=== PATIENT | female | born 1995 | race Caucasian/White ===

== ENCOUNTER 2025-06-23 15:59 | Emergency (ER) | payer OTHER, SELFPAY ==
[2025-06-23 16:08] VITALS: BP 104/69; PULSE 78; RESP 20; TEMP 36.7; O2SAT 98; BMI 38.2
--- NOTE | 2025-06-23 16:28 | ED_ITS ---
Discharge Plan Disposition Patient Disposition: Home, Self-Care Condition: Good Prescriptions Prescriptions: New doxycycline hyclate 100 mg capsule 100 mg PO BID 7 Days Qty: 14 0RF metronidazole 500 mg tablet 500 mg PO BID 7 Days Qty: 14 0RF hydrocortisone 0.5 % cream 1 applic topical DAILY PRN (Reason: rash) Qty: 28.4 0RF Referrals Follow up/Referrals: Provider,Referral, MD [Primary Care Provider, Medical] - See instructions Activity Restrictions/Add. Instructions Additional Instructions/Restrictions: Take the antibiotics as prescribed for 7 days. You can use the cream on your rash, apply twice daily as needed for itching. Follow-up with your primary care provider if you continue to have worsening vaginal cyst's or develop abdominal pain. Clinical Impressions Clinical Impression: STI (sexually transmitted infection), Contact dermatitis Print Language Print Language: [place] Citizen Discharge ED Provider: Susi Wadsworth Adult HPI General Chief complaint: Recheck/Abnormal Lab/Rx Stated complaint: sore throat,frequency,painful urination Time Seen by Provider: 06/23/25 16:09 Mode of Arrival: Ambulatory Source of Information: Patient Description of Symptoms (Recalled from ER Triage Doc. by RN): pt is here from out of town while visiting family, pt wants to be tested for stds, b/v, uti, due to burning upon urination, pt also has sore throat headache and a generalized rash on her body History of Present Illness HPI narrative: Patient is an otherwise healthy 29-year-old female who presented to the emergency department with multiple complaints. Patient states that she is here visiting from [place], patient started having some skin irritation and itching. Patient also reports vaginal discharge urinary symptoms. Patient states that she has had unprotected sex, patient is worried for sexually transmitted infections. Patient does not have any abdominal pain. Patient is not had any vaginal bleeding. Patient states that she has not had any other new recent exposures, rashes intermittently throughout her body, itchy in nature. Patient has not had any fevers. Patient is not allergic to anything. Patient has not had any new foods. Patient denies any new lotions or clothing. Also reported this was throat, no trouble swallowing, no fevers. Related Data Previous Rx's ?Medication ?Instructions ?Recorded doxycycline hyclate 100 mg capsule 100 mg PO BID 7 day s #14 caps 06/23/25 hydrocortisone 0.5 % topical cream 1 applic topical DA DARREN PRN rash 06/23/25 #28.4 grams metronidazole 500 mg tablet 500 mg PO BID 7 days #14 t abs 06/23/25 Allergies Allergy/AdvReac Type Severity Reaction Status Date / Time azithromycin (From Zithromax) AdvReac Mild Hives Verified 06/23/25 16:59 [facility] Disclaimer: The information contained in this section may have been updated after the p atient was seen, as this information can be updated by other users. Social History Smoking Status: Current every day smoker Have you lived/traveled outside US in past 30 days?: No Contact w/someone who lives/traveled outside US past 30 days?: No Exposure to someone with infectious disease in past 14 days?: No Do you have a fever (greater than 100.4 F or 38 C)?: No Have you tested positive for COVID-19?: No Exposed to someone with COVID-19 in past 14 days?: No Do you have a sore throat?: No Do you have a cough?: No Do you have any weakness?: No Do you have any diarrhea?: No Are you experiencing any unusual bleeding?: No Do you have any muscle aches/pain?: No Do you have any abdominal pain?: No Are you experiencing loss of taste or smell?: No ROS Obtained: Yes All systems reviewed & no additional complaints except as documented and Yes Systems reviewed as appropriate & no additional complaints except as documented Physical Exam General General appearance: alert and in no apparent distress Head Head exam: atraumatic, normocephalic and normal inspection Eye Eye exam: Present normal appearance, PERRL and EOMI; Absent scleral icterus ENT ENT exam: Present normal exam, normal external ear exam and other (Oropharynx is unremarkable, no erythema, no tonsillar hypertrophy no exudate) Neck Neck exam: Present normal inspection and full ROM Chest Chest inspection: Present normal inspection and symmetric chest wall rise Respiratory Respiratory exam: Present normal lung sounds bilaterally; Absent respiratory distress or wheezes Cardiovascular Cardiovascular exam: Present regular rate, normal rhythm and normal heart sounds Abdominal Exam Abdominal exam: Present soft and distention; Absent tenderness, guarding or re bound External exam: Present other (external exam unremarkable, speculum exam showed white thick discharge) Extremities Exam Extremities exam: Present normal inspection and full ROM Back Exam Back exam: Present normal inspection and full ROM Neurological Exam Neurological exam: Present alert and oriented X3 Psychiatric Psychiatric exam: Present normal affect and normal mood Skin Skin exam: Present warm, dry and other (small areas of excoriation on the right flexor crease of the elbow, and back, no erythema, no induration, no wheals) Medical Decision Making Medical Records Medical records reviewed: Yes I reviewed the patient's medical records. Screening: Per USPSTF and CDC recommendations, given the prevalence of disease in our region, it is our hospital?s policy to screen for HIV and viral Hepatitis for all patients aged 18 and over and those with ongoing risk factors. Ha Inquiry Pt receiving controlled substance: No Vital Signs: 06/23/25 16:08 06/23/25 18:39 Temperature 98.1 F 98.2 F Temperature Source Oral Pulse Rate 73 Pulse Rate [Left Radial] 78 Respiratory Rate 20 18 Blood Pressure 134/79 Blood Pressure [Right Arm] 104/69 L Blood Pressure Mean [Right Arm] 80 02 Sat by Pulse Oximetry 98 Oxygen Delivery Method Room Air Room Air Lab Data Lab results reviewed: Yes I reviewed the patient's lab results. Lab Results 06/23/25 16:11: Urine Color Yellow, Urine Appearance Clear, Urine pH 7.0, Ur Specific [place] 1.020, Urine Protein Negative, Urine Glucose (UA) Negative, Urine Ketones Negative, Urine Blood Negative, Urine Nitrate Negative, Urine Bilirubin Negative, Urine Urobilinogen 0.2, Ur Leukocyte Esterase Negative, Urine RBC None, Urine WBC 3-5, Ur Squamous Epith Cells 5-10, Urine Bacteria Trace, Urine HCG, Qual Negative, Ur C. trach DNA (PCR) Negative, U N.gonorrhoeae DNA PCR Negative, T. vaginalis (PCR) Negative 06/23/25 16:38: SARS-CoV-2 (PCR) Not detected, Influenza Type A (PCR) Not detected, Influenza Type B (PCR) Not detected, RSV (PCR) Not detected, Rhinovirus (PCR) Not detected Orders (Tests/Meds): ED MEDICATIONS Discontinued Medications Generic Name Dose Route Start Last Admin Trade Name Freq PRN Reason Stop Dose Admin Acetaminophen 1,000 mg 06/23/25 16:20 06/23/25 16:59 Acetaminophen 500mg Tab PO 06/23/25 16:21 1,000 mg ONCE ONE Administration Ceftriaxone Sodium 500 mg 06/23/25 18:00 06/23/25 18:15 Ceftriaxone 500mg Vial IM 06/23/25 18:01 500 mg ONCE ONE Administration Fluconazole 100 mg 06/23/25 18:00 06/23/25 18:14 Fluconazole 100mg Tablet PO 06/23/25 18:01 100 mg ONCE ONE Administration Ibuprofen 800 mg 06/23/25 16:21 06/23/25 17:00 Ibuprofen 800 Mg Tablet PO 06/23/25 16:22 800 mg ONCE ONE Administration Lidocaine HCl 0 ml 06/23/25 18:00 06/23/25 18:14 Lidocaine 1% 5ml Pf Vial IM 06/23/25 18:01 5 ml ONCE ONE Administration Ondansetron HCl 4 mg 06/23/25 16:20 06/23/25 16:59 Ondansetron 4mg Odt SL 06/23/25 16:21 4 mg ONCE ONE Administration ORDERS Category Date Time Status Bacterial vaginosis/Aisha Stat Lab 06/23/25 18:00 Received Mini Respiratory Panel Stat Lab 06/23/25 16:38 Completed UA [Urinalysis and Microscopic] Stat Lab 06/23/25 16:11 Completed Urine Chlam/Gono/Trich ([facility]) Stat Lab 06/23/25 16:11 Completed Urine , HCG Qual. Stat Lab 06/23/25 16:11 Completed Urine Culture Stat Micro 06/23/25 16:11 Completed Medical Decision Narrative: Patient is an otherwise healthy 29-year-old female who presents to the emergency department with multiple complaints. Patient reported a sore throat, rash as well as urinary and vaginal symptoms.On arrival, patient was hemodynamically stable with unremarkable vital signs. Differential included but not limited to: Sexually transmitted infection, Aisha infection, bacterial vaginosis, contact dermatitis, viral pharyngitis, urinary tract infection, , amongst others. Patient's labs were reviewed and interpreted by myself: Patient's UA has trace bacteria, 3-5 white blood cells and negative nitrites and leuk esterase. Patient's respiratory panel is negative. test negative. Patient was given Magic mouthwash for his sore throat. Patient's likely viral pharyngitis no concern for strep pharyngitis at this time. Given that patient is from out of town and after discussion with the patient, she elected to be treated empirically for sexually transmitted infections however gonorrhea chlamydia and bacterial vaginosis was sent as well as trichomonas. Patient did have white discharge therefore patient was treated for yeast infection as well. Patient was given a dose of IM Rocephin as well as fluconazole in the emergency department. Patient was sent with Flagyl as well as doxycycline. At this time, patient was also sent with hydrocortisone cream for rash. It appears to be likely to be a contact dermatitis, no concern for superficial cellulitis or other skin infection at this time. Patient was otherwise discharged home in stable condition return precautions were discussed. Critical Care Critical Care Time Critical Care Time: No
[2025-06-23 16:32] LABS: Microscopic, Urine URINE MICROSCOPIC (MICROSCOPIC)
[2025-06-23 16:39] LABS: Urine Pregnancy, HCG Qual. Negative (Negative)
[2025-06-23 16:56] LABS: Coronavirus 19, PCR Not Detected (NotDetected); Influenza A, PCR Not Detected (NotDetected); Influenza B, PCR Not Detected (NotDetected)
[2025-06-23] MEDS: ONDANSETRON 4MG ODT 4 MG SL (16:59)
[2025-06-23] MEDS: ACETAMINOPHEN 500MG TAB 1000 MG PO (16:59)
[2025-06-23] MEDS: IBUPROFEN 800 MG TABLET PO (17:00)
[2025-06-23 17:22] LABS: Bacteria,Urine Trace /lpf
[2025-06-23 17:26] LABS: Bilirubin,Urine Negative (Negative); Color,Urine YELLOW (Yellow); Glucose,Urine (UA) Negative (Negative); Ketones,Urine Negative (Negative); Leukocyte Esterase,Urine Negative (Negative); PH,Urine 7.0 (5.0-8.5); Protein,Urine Negative (Negative); Specific Gravity, Urine 1.020 (1.005-1.030); Urobilinogen,Urine 0.2 EU/dl (0.2)
[2025-06-23] MEDS: LIDOCAINE 1% 5ML PF VIAL IM (18:14)
[2025-06-23] MEDS: FLUCONAZOLE 100MG TABLET 100 MG PO (18:14)
[2025-06-23 18:39] VITALS: BP 134/79; PULSE 73; RESP 18; TEMP 36.8; O2SAT 98
[2025-06-29 15:41] LABS: Bacterial Vaginosis Associated 2
== END 2025-06-23 18:40 | disposition home or self-care (01) ==
PROVIDERS: Emergency Provider Student in an Organized Health Care Education/Training Program
DX: R30.0 Dysuria (principal); A64 Unspecified sexually transmitted disease; L25.9 Unspecified contact dermatitis, unspecified cause; R07.0 Pain in throat; F17.210 Nicotine dependence, cigarettes, uncomplicated
CPT/HCPCS: 81001; 81025; 87086; 87491; 87591; 87631; 87661; 87798; 87801; 96372; 99283; J0696; J2003; Q0162

== ENCOUNTER 2025-07-12 07:31 | Emergency (ER) | payer OTHER, SELFPAY ==
[2025-07-12 07:48] VITALS: BP 141/80; PULSE 69; RESP 15; TEMP 36.6; O2SAT 99; BMI 38.6
--- NOTE | 2025-07-12 08:34 | ED_ITS ---
Discharge Plan Disposition Patient Disposition: Home, Self-Care Prescriptions Prescriptions: New hydrocortisone 0.5 % cream 1 applic topical BID PRN (Reason: rash) Qty: 28.4 0RF Discontinued hydrocortisone 0.5 % cream 1 applic topical DAILY PRN (Reason: rash) Qty: 28.4 0RF No Action doxycycline hyclate 100 mg capsule 100 mg PO BID 7 Days Qty: 14 0RF metronidazole 500 mg tablet 500 mg PO BID 7 Days Qty: 14 0RF Referrals Follow up/Referrals: Provider,Referral, MD [Primary Care Provider, Medical] - See instructions Activity Restrictions/Add. Instructions Additional Instructions/Restrictions: We will call you to follow-up the results of your stool studies. Continue to hydrate well by drinking plenty of fluids, including water, sugar-free Gatorade, Pedialyte. For your rash, use the hydrocortisone cream as prescribed. I also encourage you to wash your sheets and clothing in hot water with detergent as this could be an allergic reaction to the new sheets. If you develop any new or worsening symptoms, or if you become concerned for your health for any reason, return to the emergency department for evaluation. You can also use [id number] hemorrhoid cream for your hemorrhoids. Clinical Impressions Clinical Impression: Diarrhea, External hemorrhoid, Contact dermatitis Instructions Patient Instructions: DI for Gastrointestinal Bleeding Print Language Print Language: [place] Citizen Discharge ED Provider: Du Gonzalez General Adult HPI General Chief complaint: GI Bleed Stated complaint: Rash on Body, diarrhea, blood in stool Time Seen by Provider: 07/12/25 07:54 Mode of Arrival: Ambulatory Source of Information: Patient Description of Symptoms (Recalled from ER Triage Doc. by RN): pt presents to ED with c/o blood in stool, rash, diarrhea. pt reports that she [place]. pt reports stomach, breasts, thighs. symptoms all began approx 3 days ago. pt reports bright red blood per rectum. History of Present Illness HPI narrative: Adelia Trejo is a 29y with a history of tubal ligation, hemorrhoids who presents to the emergency department complaints of rash and bloody diarrhea. Patient states that 2 weeks ago, she had symptoms of a viral upper respiratory infection with congestion, cough. She noticed a rash on her forearm and was evaluated emergency department at that time and told was a contact dermatitis and was prescribed hydrocortisone cream. She states that it did not get much better and seems to spread to her chest, abdomen, thighs and her left arm. She does state that it is itchy. She is concerned she may have scabies but states that it does not involve the webspaces of her fingers and her daughter, who sleeps in the same bed as her, does not have these lesions. She states that they recently moved here and bought all new sheets and a new mattress, however she has not washed them. She has not used any new detergents or soaps. In terms of the diarrhea, she states that she started to have multiple episodes of loose diarrhea that started out as nonbloody approximately week ago but is going approximately every 30 minutes and states that is now bright red blood. She does report some mild lower abdominal pain. She does report a history of hemorrhoids and states that it feels similar to that. Related Data Previous Rx's ?Medication ?Instructions ?Recorded doxycycline hyclate 100 mg capsule 100 mg PO BID 7 day s #14 caps 06/23/25 metronidazole 500 mg tablet 500 mg PO BID 7 days #14 t abs 06/23/25 hydrocortisone 0.5 % topical cream 1 applic topical BI D PRN rash 07/12/25 #28.4 grams Allergies Allergy/AdvReac Type Severity Reaction Status Date / Time azithromycin (From Zithromax) AdvReac Mild Hives Verified 06/23/25 16:59 [facility] Disclaimer: The information contained in this section may have been updated after the patient was seen, as this information can be updated by other users. Social History Smoking Status: Current every day smoker alcohol intake: never current occupational status: unemployed Travel in the last 8 weeks?: Inside the [employer] ROS Obtained: Yes Systems reviewed as appropriate & no additional complaints except as documented Physical Exam General General appearance: alert and in no apparent distress Head Head exam: atraumatic Eye Eye exam: Present normal appearance ENT ENT exam: Present normal external ear exam Neck Neck exam: Present full ROM Chest Chest inspection: Present symmetric chest wall rise Respiratory Respiratory exam: Present normal lung sounds bilaterally; Absent respiratory distress Cardiovascular Cardiovascular exam: Present regular rate and normal rhythm Abdominal Exam Abdominal exam: Present soft and tenderness (Mild suprapubic tenderness); Absent guarding Extremities Exam Extremities exam: Present normal inspection Back Exam Back exam: Present normal inspection Neurological Exam Neurological exam: Present alert and oriented X3 Psychiatric Psychiatric exam: Present normal affect Skin Skin exam: Present warm, dry and rash (Scattered, macules with excoriation hill to bilateral forearms, upper arms, chest, abdomen) Medical Decision Making Medical Records Screening: Per USPSTF and CDC recommendations, given the prevalence of disease in our region, it is our hospital?s policy to screen for HIV and viral Hepatitis for all patients aged 18 and over and those with ongoing risk factors. Ha Inquiry Pt receiving controlled substance: No Vital Signs: 07/12/25 07:48 07/12/25 08:38 07/12/25 10:34 Temperature 97.8 F Temperature Source Oral Pulse Rate 66 Pulse Rate [Left Radial] 69 Respiratory Rate 15 Blood Pressure 117/72 Blood Pressure [Right Arm] 141/80 H Blood Pressure Mean [Right Arm] 100 Blood Pressure Source [Right Arm] Automatic Cuff Blood Pressure Position [Right Arm] Supine 02 Sat by Pulse Oximetry 99 98 99 Oxygen Delivery Method Room Air Lab Data Lab Results 07/12/25 08:16: WBC 7.5, RBC 4.27, Hgb 13.6, Hct 39.1, MCV 91.6, MCH 31.9 H, MCHC 34.8, RDW 12.5, Plt Count 302, MPV 9.6, Neut % (Auto) 51.0, Lymph % (Auto) 38.3, [place] % (Auto) 6.1, Eos % (Auto) 3.7, Baso % (Auto) 0.5, Neut # (Auto) 3.8, Lymph # (Auto) 2.9, [place] # (Auto) 0.5, Eos # (Auto) 0.3, Baso # (Auto) 0.0, Sodium 140, Potassium 3.5, Chloride 109 H, Carbon Dioxide 21 L, Anion Gap 13.5, BUN 9, Creatinine 0.60, Estimated Creat Clear 223, Estimated GFR 118, Est GFR ( Amer) 143, Glucose 132 H, Calcium 9.0, Total Bilirubin 0.5, AST 38 H, ALT 33, Alkaline Phosphatase 58, Total Protein 6.9, Albumin 4.1, Globulin 2.8, Albumin/Globulin Ratio 1.5, Lipase 56, Serum HCG, Qual Negative, HCV Ab CAITLYN w/Rflx PCR Qn Negative 07/12/25 08:25: Blood Type O Positive, Antibody Screen Negative 07/12/25 08:47: Urine Color Yellow, Urine Appearance Clear, Urine pH 6.0, Ur Specific [place] >= 1.030, Urine Protein Negative, Urine Glucose (UA) Negative, Urine Ketones Negative, Urine Blood 1+ A, Urine Nitrate Negative, Urine Bilirubin Negative, Urine Urobilinogen 0.2, Ur Leukocyte Esterase Negative, Urine RBC None, Urine WBC 3-5, Ur Squamous Epith Cells 10-20, Urine Bacteria 1+ 07/12/25 08:16 07/12/25 08:16 Orders (Tests/Meds): ED MEDICATIONS Discontinued Medications Generic Name Dose Route Start Last Admin Trade Name Freq PRN Reason Stop Dose Admin Diphenhydramine HCl 25 mg 07/12/25 08:34 07/12/25 09:38 Diphenhydramine 50mg/Ml Vial IV 07/12/25 08:35 25 mg ONCE ONE Administration ORDERS Category Date Time Status Type and Screen Stat BBK 07/12/25 08:25 Completed CBC w/Auto Diff [Complete Blood Count Auto Diff] Stat Lab 07/12/25 08:16 Completed CMP [Comprehensive Metabolic Panel] Stat Lab 07/12/25 08:16 Completed Diarrhea 23 Panel, PCR Stat Lab 07/12/25 08:47 Received HIV Combo Stat Lab 07/12/25 08:16 Received Hepatitis C Ab Qual. W/ RFX Stat Lab 07/12/25 08:16 Completed Lipase Stat Lab 07/12/25 08:16 Completed Serum [HCG Qualitative, Serum] Stat Lab 07/12/25 08:16 Completed UA [Urinalysis and Microscopic] Stat Lab 07/12/25 08:47 Completed Medical Decision Narrative: Adelia Trejo is a 29y with a history of tubal ligation, hemorrhoids who presents to the emergency department complaints of rash and bloody diarrhea. Patient states that 2 weeks ago, she had symptoms of a viral upper respiratory infection with congestion, cough. She noticed a rash on her forearm and was evaluated emergency department at that time and told was a contact dermatitis and was prescribed hydrocortisone cream. She states that it did not get much better and seems to spread to her chest, abdomen, thighs and her left arm. She does state that it is itchy. She is concerned she may have scabies but states that it does not involve the webspaces of her fingers and her daughter, who sleeps in the same bed as her, does not have these lesions. She states that they recently moved here and bought all new sheets and a new mattress, however she has not washed them. She has not used any new detergents or soaps. In terms of the diarrhea, she states that she started to have multiple episodes of loose diarrhea that started out as nonbloody approximately week ago but is going approximately every 30 minutes and states that is now bright red blood. She does report some mild lower abdominal pain. She does report a history of hemorrhoids and states that it feels similar to that. On arrival, patient is mildly hypertensive, heart within normal limits, breathing comfortably on room air, afebrile, oxygen saturation 98% on room air. Cardiopulmonary exam is unremarkable. She is mildly tender in the suprapubic region without guarding or rebound. Abdomen is not peritonitic. Rectal exam performed with equal employment opportunity officer shows 2 separate external hemorrhoids, 1 at the 12 o'clock position and one at the 9 o'clock position with bright red red near the hemorrhoid at the 9 o'clock position. Hemoccult was considered, however given there is obvious blood in this area, is felt that this is not needed. Patient does have scattered scabbed over papules along the bilateral forearms, upper arms, chest and abdomen, sparing the skin folds and webspaces of the fingers. Scabies was considered, however mother states that her daughter and son sleep in the same house and in the same bed as her, however they have not had similar type rash. She does note that they recently moved here and she brought all new sheets and a new mattress but has not washed them since she bought them. She states that she has not switched detergents or soaps. It is felt that her symptoms are likely related to contact dermatitis and I recommended washing her sheets in hot water and detergent that she has used before. Will also give hydrocortisone cream to help with symptoms. Recommended Benadryl for itching relief. Differential diagnosis for diarrhea and abdominal pain includes: Infectious colitis, urinary tract infection, lower GI bleed, external hemorrhoids, low concern for ovarian pathology such as torsion or ruptured ovarian cyst given patient is only tender over the suprapubic region and mildly tender at that. It is felt that bleeding is emanating from her hemorrhoid, which was likely irritated due to diarrhea. Workup in the emergency department included: CBC with differential, CMP, lipase, test, urinalysis, diarrhea panel. CT abdomen pelvis was considered, however given the localization of her pain in the suprapubic region and bleeding likely from her external hemorrhoid, is felt that the risk of radiation exposure outweighs the potential benefits and was deferred at this time. Patient's workup shows no leukocytosis, no anemia with hemoglobin 13.6, hematocrit 39.1, platelets normal at 302. Electrolytes within normal limits. BUN normal at 9. Creatinine 0.6. Mildly elevated AST at 38 but liver enzymes and bilirubin otherwise within normal limits. Lipase normal at 56. Negative test. Urinalysis with no RBCs on micro, 10-20 squamous epithelial cells and only 3-5 white blood cells. Negative leukocyte Estrace and negative nitrate (low concern for urinary tract infection). Patient has been in the emergency department daily for hours without worsening of her symptoms. Given this, feel the patient is appropriate discharge at this time and will follow-up with her the results of her GI panel if there is any actual needs to be taken on that. I encouraged her to continue hydrating by drinking plenty of fluids, including water, sugar-free Gatorade, Pedialyte and was given strict return precautions. Is felt that patient's bloody diarrhea could be secondary to gastrointestinal illness resulting in diarrhea that irritated her external hemorrhoid versus bleeding from infectious diarrhea. By the way, is felt the patient is appropriate discharge at this time given she is not anemic and her BUN is normal. Critical Care Critical Care Time Critical Care Time: No
[2025-07-12 08:38] VITALS: O2SAT 98
[2025-07-12 08:41] LABS: Hematocrit 39.1 % (37.0-47.0); Hemoglobin 13.6 g/dL (12.2-16.2); Immature Granulocytes % 0.4 %; Mean Corpuscular HGB Conc 34.8 g/dL (31.8-35.4); Mean Corpuscular Hemoglobin 31.9 pg (27.0-31.2); Mean Corpuscular Volume 91.6 fl (81-99); Nucleated Red Blood Cells % 0 %; Platelet Count 302 K/mm3 (142-424); Red Blood Count 4.27 M/mm3 (4.20-5.40); Red Cell Distribution Width-SD 41.5 fL; White Blood Count 7.5 K/mm3 (4.8-10.8)
[2025-07-12 08:42] LABS: Albumin Level 4.1 g/dl (3.5-5.0); Chloride 109 mmol/L (98-107); Potassium 3.5 mmoL/L (3.5-5.1); Sodium 140 mmol/L (136-145)
[2025-07-12 08:45] LABS: Alanine Aminotransferase 33 U/L (12-78); Albumin/Globulin Ratio 1.5 (1.1-1.8); Alkaline Phosphatase 58 U/L (38-126); Anion Gap 13.5 mEq/L (5-15); Aspartate Amino Transferase 38 U/L (14-36); Bilirubin,Total 0.5 mg/dl (0.2-1.3); Blood Urea Nitrogen 9 mg/dl (7-17); Carbon Dioxide 21 mmol/L (22.0-30.0); Creatinine Clearance Estimated 223 mL/min (50-200); Creatinine,Serum 0.60 mg/dl (0.52-1.04); Estimated Glomerular Filt Rate 118 ml/min (>60); GFR (African American) 143 ML/MIN (>60); Globulin 2.8 g/dL (1.3-3.2); Lipase 56 U/L (23-300); Total Protein,Serum 6.9 g/dl (6.3-8.2)
[2025-07-12 08:46] LABS: Calcium 9.0 mg/dl (8.4-10.2); Glucose 132 mg/dl (74-100)
[2025-07-12 08:50] LABS: HCG Qualitative, Serum Negative (Negative)
[2025-07-12 08:53] LABS: Adenovirus F 40/41, stool Not Detected (NotDetected); Clostridium Difficile A/B, PCR Not Detected (NotDetected); Cyclospora Cayetanesis Not Detected (NotDetected); Microscopic, Urine URINE MICROSCOPIC (MICROSCOPIC); Plesimonas Shigalloides, PCR Not Detected (NotDetected); Salmonella, PCR Not Detected (NotDetected); Shiga-like toxin E coli Not Detected (NotDetected); Shigella Enterovasive E coli Not Detected (NotDetected); Vibrio, PCR Not Detected (NotDetected); Yersinia Entercolitica, PCR Not Detected (NotDetected)
[2025-07-12 09:06] LABS: Bilirubin,Urine Negative (Negative); Color,Urine YELLOW (Yellow); Glucose,Urine (UA) Negative (Negative); Ketones,Urine Negative (Negative); Leukocyte Esterase,Urine Negative (Negative); PH,Urine 6.0 (5.0-8.5); Protein,Urine Negative (Negative); Specific Gravity, Urine >= 1.030 (1.005-1.030); Urobilinogen,Urine 0.2 EU/dl (0.2)
[2025-07-12 09:26] LABS: Bacteria,Urine 1+ /lpf
[2025-07-12 09:56] LABS: Hepatitis C Ab Qual. W/ RFX NEGATIVE (Negative)
[2025-07-12 10:34] VITALS: BP 117/72; PULSE 66; O2SAT 99
[2025-07-12 11:16] VITALS: BP 95/60; PULSE 83; RESP 16; TEMP 36.6; O2SAT 97
[2025-07-12 19:28] LABS: HIV Combo Retest POSITIVE (Negative)
== END 2025-07-12 11:17 | disposition home or self-care (01) ==
PROVIDERS: Emergency Provider Student in an Organized Health Care Education/Training Program
DX: A08.11 Acute gastroenteropathy due to Norwalk agent (principal); R10.30 Lower abdominal pain, unspecified; L25.9 Unspecified contact dermatitis, unspecified cause; R19.7 Diarrhea, unspecified; K64.9 Unspecified hemorrhoids
CPT/HCPCS: 80053; 81001; 83690; 84703; 85025; 86803; 86850; 87389; 87507; 96374; 99284; G0432; J1200

== ENCOUNTER 2025-08-06 05:12 | Emergency (ER) | payer SELFPAY ==
[2025-08-06 05:21] VITALS: BP 124/76; PULSE 72; RESP 16; TEMP 36.6; O2SAT 97; BMI 38.9
[2025-08-06 05:23] VITALS: BP 124/76; PULSE 79; O2SAT 98
[2025-08-06 05:30] VITALS: BP 120/67; PULSE 71; O2SAT 96
--- NOTE | 2025-08-06 05:48 | ED_ITS ---
Discharge Plan Disposition Patient Disposition: Home, Self-Care Condition: Good Prescriptions Prescriptions: New prednisone 10 mg tablet 10 mg PO DIRECTED Qty: 60 0RF Rx Instructions: Take 5 pills (5omg) by mouth once daily for 4 days; then take 4 pills (40mg) by mouth for 4 days; then take 3 pills (30mg) by mouth for 4 days; then take 2 pills (20mg) by mouth for 4 days; then take 1 pill (10mg) by mouth for 4 days. No Action doxycycline hyclate 100 mg capsule 100 mg PO BID 7 Days Qty: 14 0RF metronidazole 500 mg tablet 500 mg PO BID 7 Days Qty: 14 0RF hydrocortisone 0.5 % cream 1 applic topical BID PRN (Reason: rash) Qty: 28.4 0RF Referrals Follow up/Referrals: Jennifer Marin MD [Referring, Dermatology] - See instructions Referral Note: Please evaluate CHRISTINA for pruritic rash x2 months, worsening Davion Lin, [Staff Physician, Family Practice] - See instructions Referral Note: establish care, follow up rash, speech pathology supervisor referral, possible illness from environmental mold Provider,Referral, [Primary Care Provider, Medical] - See instructions Activity Restrictions/Add. Instructions Additional Instructions/Restrictions: You were evaluated in the ER and are believed to be appropriate for discharge at this time. Take the prescribed prednisone taper as directed. I recommend you take this medication when you wake up to start your day as it will likely boost your energy. As discussed, you can use the [employer] website to help with prescriptions. Call to make an appointment with Dr. Lin's office to establish care with family medicine. They should follow-up any chronic problems including this rash and can help with a referral to an speech pathology supervisor. Also call Dr. Marin's office to make an appointment with dermatology. Call them first thing Thursday morning as it often takes a little while to get into her. Consider having your environment evaluated for mold as discussed. Do not use any more topical cortisone or hydrocortisone cream. I recommend aquaphor or eucerin cream to help calm the skin. Keep taking zyrtec daily to reduce allergic symptoms. Return to the ER with any new, worsening, or otherwise concerning symptoms. Clinical Impressions Clinical Impression: Dermatitis, Pruritic rash Print Language Print Language: Belarusian Discharge ED Provider: Jensen,Mikalah General Adult HPI General Chief complaint: Skin/Abscess/Foreign Body Stated complaint: skin rash, body aches, weakness Time Seen by Provider: 08/06/25 05:21 Mode of Arrival: Ambulatory Source of Information: Patient Description of Symptoms (Recalled from ER Triage Doc. by RN): Patient has had a rash for 6/7 weeks; has not gotten any better; has not seen pcp for it History of Present Illness HPI narrative: 29-year-old female presents to the ER with nearly 2 months of rash. She has been evaluated now 3 times in this ER including today for the same complaint. She states she has used prescription cortisone cream, topical hydrocortisone cream, oral antihistamines including Zyrtec and Benadryl, but the rash seems to continue to get worse. She states it started on her arms but has expanded to include her whole body. She has had her home evaluated by an air deodorizer servicer and they did not find any evidence of bedbugs, scabies, or other pests, and her daughter who lives with her has no similar rash. Patient and daughter recently moved to their new home here in [place] and approximately 1 to 2 weeks after moving and she started having the rash on her arms. She reports it is now spread to her entire body except her face and she reports the itching is keeping me up at night and I scratch myself until I bleed . She does report occasional marijuana use but denies IV drug use or other illicit drugs, specifically denying methamphetamines and cocaine. She reports no history of seasonal allergies. She states as her rash has progressed she has also noticed that she has been somewhat more fatigued and is starting to have headaches. She is not having any numbness, tingling, weakness, no thunderclap onset, she denies any difficulty breathing or swallowing, no new cough, no nausea, vomiting, diarrhea, or abdominal pain. She has no other complaints or concerns at this time. She is frustrated that she is getting worse not better. Related Data Previous Rx's ?Medication ?Instructions ?Recorded doxycycline hyclate 100 mg capsule 100 mg PO BID 7 day s #14 caps 06/23/25 metronidazole 500 mg tablet 500 mg PO BID 7 days #14 t abs 06/23/25 hydrocortisone 0.5 % topical cream 1 applic topical BI D PRN rash 07/12/25 #28.4 grams prednisone 10 mg tablet 10 mg PO DIRECTED #60 tab s 08/06/25 Allergies Allergy/AdvReac Type Severity Reaction Status Date / Time azithromycin (From Zithromax) AdvReac Mild Hives Verified 06/23/25 16:59 [facility] Disclaimer: The information contained in this section may have been updated after the patient was seen, as this information can be updated by other users. Social History (Updated 07/12/25 @ 11:19 by Du Gonzalez MD) Smoking Status: Current every day smoker alcohol intake: never current occupational status: unemployed Travel in the last 8 weeks?: Inside the [employer] [facility] ROS Obtained: Yes Systems reviewed as appropriate & no additional complaints except as documented Per HPI Physical Exam General General appearance: alert and in no apparent distress Head Head exam: atraumatic and normocephalic Eye Eye exam: Present PERRL and EOMI ENT ENT exam: Present mucous membranes moist and other (Airway patent no swelling or angioedema) Neck Neck exam: Present normal inspection and full ROM Chest Chest inspection: Present symmetric chest wall rise Respiratory Respiratory exam: Present normal lung sounds bilaterally and other (No respira tory distress or stridor, no wheezing); Absent respiratory distress, wheezes or stridor Cardiovascular Cardiovascular exam: Present regular rate and normal rhythm Extremities Exam Extremities exam: Present full ROM Neurological Exam Neurological exam: Present alert and oriented X3; Absent motor sensory deficit Psychiatric Psychiatric exam: Present normal affect and normal mood Skin Skin exam: Present warm, dry and rash (Scattered mildly erythematous papules on the torso front and back, buttocks, legs, arms, not vesicular, no bullae, surrounding excoriations present, no sloughing, spares the face, no heat, induration, or fluctuance associated) Medical Decision Making Medical Records Medical records reviewed: Yes I reviewed the patient's medical records. Screening: Per USPSTF and CDC recommendations, given the prevalence of disease in our region, it is our hospital?s policy to screen for HIV and viral Hepatitis for all patients aged 18 and over and those with ongoing risk factors. MR Comment: Recent treatment for STI at the same time as she was being treated for this rash Ha Inquiry Pt receiving controlled substance: No Vital Signs: 08/06/25 05:21 08/06/25 05:23 08/06/25 05:30 Temperature 97.8 F Temperature Source Oral Pulse Rate 79 71 Pulse Rate [Right Radial] 72 Respiratory Rate 16 Blood Pressure 124/76 120/67 Blood Pressure [Right Arm] 124/76 Blood Pressure Mean [Right Arm] 92 Blood Pressure Source [Right Arm] Automatic Cuff Blood Pressure Position [Right Arm] Sitting 02 Sat by Pulse Oximetry 97 98 96 Oxygen Delivery Method Room Air Room Air Orders (Tests/Meds): ED MEDICATIONS Discontinued Medications Generic Name Dose Route Start Last Admin Trade Name Orquidea PRN Reason Stop Dose Admin Prednisone 60 mg 08/06/25 05:36 08/06/25 05:41 Prednisone 20mg Tab PO 08/06/25 05:37 60 mg ONCE ONE Administration Medical Decision Narrative: In summary, this 29-year-old female presents to the emergency department today with generalized pruritic rash. On initial evaluation patient is hemodynamically stable, afebrile, overall well-appearing, airway patent, no evidence of angioedema, no stridor, no wheezing, no multisystem organ involvement, patient has slightly erythematous papular rash scattered across her body sparing the face with no vesicles, no bullae, no sloughing, spares the intertriginous areas. Differential diagnosis includes but is not limited to contact dermatitis, environmental exposure, I considered tests such as bedbugs or scabies but pramod scherer has had her living environment evaluated and she has no intertriginous lesions, her daughter who sleeps with her does not have any similar rash, making these less likely. With patient having increasing fatigue and mild headaches associated with this, I did consider the possibility of environmental mold exposure. Patient reports she is not living in a very nice apartment and would not be surprised if she had mold. We discussed at length need for outpatient follow-up with a specialist including dermatology, speech pathology supervisor, and with primary care. I provided referral to primary care and dermatology. Patient is at her wits end with the itching, we discussed risks and benefits of prolonged steroid taper but that this should coincide with having her environment evaluated for mold or other potential allergic exposures. She is agreeable to this. I instructed her to stop any topical steroid creams which she states she has been off of for multiple days because she is out. I encouraged her to continue daily antihistamine. Patient was provided referral to Dr. Lin with family medicine and Dr. Marin with dermatology for outpatient follow-up. She was concerned about the potential cost of steroid taper so I showed her good Rx and how to use it at her pharmacy of choice. She was provided first dose of prednisone in the ER. She was counseled on prolonged steroid use and the risks and common side effects of this. Patient was given instructions on symptomatic management, follow up instructions, and return precautions for the emergency department. Patient indicated understanding and was discharged in stable condition. Critical Care Critical Care Time Critical Care Time: No
[2025-08-06 05:49] VITALS: BP 120/67; PULSE 72; RESP 18; TEMP 36.6; O2SAT 98
== END 2025-08-06 05:51 | disposition home or self-care (01) ==
LOC: ER 05:52
PROVIDERS: Emergency Provider Emergency Medicine
DX: L30.9 Dermatitis, unspecified (principal); L28.2 Other prurigo
CPT/HCPCS: 99283